=== PATIENT | female | born 1995 | race Caucasian/White ===

== ENCOUNTER 2022-11-22 13:37 | Emergency (ER) | payer OTHER ==
[~2022-11-22] VITALS: Ht 170.2 cm; Wt 63.5 kg
[2022-11-22] MEDS ORDERED: ONDANSETRON ODT8 MG PO (19:02)
[2022-11-22] MEDS ORDERED: ZYRTEC10 M3 PO (19:02)
[2022-11-22] MEDS ORDERED: CIPRO500 MG PO (19:02)
[2022-11-22] MEDS ORDERED: PEPCID AC20 MG PO (19:02)
== END 2022-11-22 19:14 | disposition home or self-care (01) ==
LOC: ER 13:38
PROVIDERS: Emergency Medicine
DX: J22 Unspecified acute lower respiratory infection (principal); Z20.822 Contact with and (suspected) exposure to COVID-19; J32.0 Chronic maxillary sinusitis